=== PATIENT | female | born 1960 | race African-American/Black ===

== ENCOUNTER 2018-07-26 12:44 | Outpatient (CLI) | payer OTHER ==
--- NOTE | 2018-07-30 15:45 | Ultrasound Report ---
ULTRASOUND RIGHT AXILLA: 07/26/18 12:44:00 CLINICAL: A palpable lump in the right axilla. COMPARISON: None. FINDINGS: Ultrasound of the right axilla demonstrated a benign hyperechoic intradermal skin lesion measuring 4 mm in length. The skin is mildly thickened.No mass or lymphadenopathy. The right breast was was not scanned. IMPRESSION: A benign probable skin lesion of the right axilla. BI-RADS 2 - - Benign RECOMMENDATION: Clinical followup.
== END 2018-07-26 12:45 | disposition home or self-care (01) ==
LOC: US 12:44
DX: N63.10 Unspecified lump in the right breast, unspecified quadrant (principal)
CPT/HCPCS: 38505